=== PATIENT | male | born 1975 | race Caucasian/White ===

== ENCOUNTER 2018-12-24 10:19 | Emergency (ER) | payer OTHER ==
[~2018-12-24] VITALS: Ht 182.9 cm; Wt 108.9 kg
[~2018-12-24 10:19] MED LIST: ALBUTEROL INH INH; FLOMAX PO; HYDROCODON-ACE1 EAC2 PO; MULTIVITAMINS PO; PROBIOTIC1 EACH PO; RANITIDINE 150150 M1 PO
[2018-12-24 11:01] LABS: ABSOLUTE NEUTROPHILS 3.7 thou/uL (1.4-8.2); BASOPHILS 0.5 % (0.0-2.0); EOSINOPHILS 0.8 % (0.0-3.0); HEMATOCRIT 43.1 % (42.0-52.0); HEMOGLOBIN 14.3 gm/dL (14.0-18.0); LYMPHOCYTES 24.1 % (24.0-44.0); MCH 27.8 pg (26.0-34.0); MCHC 33.2 g/dL (28.0-37.0); MONOCYTES 5.5 % (1.0-8.0); PLATELET COUNT 259 thou/uL (150-400); POLYS 69.1 % (36.0-66.0); RBC 5.13 mil/uL (4.50-6.00); RDW 14.2 % (10.5-14.5); WBC 5.4 thou/uL (4.0-11.0)
[2018-12-24 11:12] LABS: CALCIUM 9.1 mg/dL (8.5-10.1); CREATININE 1.2 mg/dL (0.7-1.3)
[2018-12-24 11:18] LABS: ALBUMIN 3.9 g/dL (3.4-5.0); TOTAL BILIRUBIN 0.2 mg/dL (<0.1-1.0); TOTAL PROTEIN 7.5 g/dL (6.4-8.2)
[2018-12-24 12:05] LABS: URINE BILIRUBIN NEGATIVE (Negative); URINE BLOOD 3+ (Negative); URINE CLARITY SL CLOUDY; URINE COLOR YELLOW; URINE GLUCOSE-RANDOM* NEGATIVE (Negative); URINE KETONES NEGATIVE (Negative); URINE LEUKOCYTES-REFLEX NEGATIVE (Negative); URINE NITRITE-REFLEX NEGATIVE (Negative); URINE PROTEIN (DIPSTICK) TRACE (Negative); URINE SPECIFIC GRAVITY 1.015 (1.005-1.035); URINE UROBILINOGEN 0.2 E.U./dl (0.2-1.0)
[2018-12-24] MEDS ORDERED: ONDANSETRON ODT8 MG PO (12:10)
[2018-12-24] MEDS ORDERED: TORADOL 10 MG T10 MG PO (12:10)
[2018-12-24] MEDS ORDERED: KEFLEX500 M1 PO (12:10)
[2018-12-24] MEDS ORDERED: FLOMAX0.4 MG PO (12:10)
[2018-12-24 12:22] LABS: SQUAMOUS 0-3 Few /LPF (0-3)
[2018-12-24 12:23] LABS: CASTS None Seen /LPF (None Seen); MUCUS >6 Heavy strn/LPF (None Seen)
[2018-12-24 12:25] VITALS: BP 148/96
[2018-12-24 12:25] LABS: BACTERIA-REFLEX 1-9 Few /HPF (None Seen); CRYSTALS None Seen /LPF (None Seen); URINE RBC >20 Many /HPF (0-2); URINE WBC-REFLEX 0-5 Rare /HPF (0-5)
[2018-12-24 12:27] LABS: YEAST-REFLEX Present (None Seen)
== END 2018-12-24 12:25 | disposition home or self-care (01) ==
LOC: ER 10:19
PROVIDERS: Emergency Medicine
DX: N20.1 Calculus of ureter (principal); E87.6 Hypokalemia; R10.32 Left lower quadrant pain; K21.9 Gastro-esophageal reflux disease without esophagitis; Z87.442 Personal history of urinary calculi; Z90.49 Acquired absence of other specified parts of digestive tract; Z88.8 Allergy status to other drugs, medicaments and biological substances